=== PATIENT | female | born 2000 | race Two or more races ===

== ENCOUNTER 2024-10-05 18:50 | Emergency (ER) | payer OTHER ==
[~2024-10-05] VITALS: Ht 157.5 cm; Wt 112.3 kg
--- NOTE | 2024-10-05 19:18 | ED.PDOC ---
GI ASSESSMENT HPI Comments 23 year old female came to ER due to abdominal pain. Patient has history of WPW, states she has been having right lower quadrant abdominal pain since yesterday, sharp, intermittent 3x/ hour, radiating to her chest and associated with nausea, dizziness and diarrhea. Patient was seen yesterday, diagnosed with UTI and currently taking nitrofurantoin Chief Complaint: Abdominal Pain Time Seen by MD: 19:17 Primary Care Provider: NONE Reviewed Notes: Nurses Notes Information Source: Patient Mode of Arrival: Ambulatory Timing: Days Duration: Intermittent Prehospital treatment: None Quality: Sharp Vomitus: None Stool: Loose Severity: Moderate Recent: None Recent Hx of: None Pain Location: RLQ Modifying Factors: Nothing Associated sign and symptoms: Nausea, Diarrhea, Abdominal Pain Past Medical History PAST MEDICAL HISTORY: Asthma Past Medical History (Other): Woff parkinson white disease Surgical History: Tonsillectomy Surgical History (Other): cardiac ablation 2018 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 Family History Family History: Reviewed,noncontributory to illness Social History Smoker: Non-Smoker Alcohol: Denies ETOH Use Drugs: Denies Drug Use Lives In: Home Constitutional: denies: chills, diaphoresis, fatigue, fever, malaise, sweats, weakness, others EENTM: denies: blurred vision, double vision, ear bleeding, ear discharge, ear drainage, ear pain, ear ringing, eye pain, eye redness, hearing loss, mouth pain, mouth swelling, nasal discharge, nose bleeding, nose congestion, nose pain, photophobia, tearing, throat pain, throat swelling, voice changes, others Respiratory: denies: cough, hemoptysis, orthopnea, SOB at rest, shortness of breath, SOB with excertion, stridor, wheezing, others Cardiovascular: reports: chest pain; denies: dizzy spells, diaphoresis, Dyspnea on exertion, edema, irregular heart beat, left arm pain, lightheadedness, palpitations, PND, syncope, others Gastrointestinal: reports: abdominal pain, diarrhea, nausea; denies: abdomen distended, blood streaked bowels, constipated, dysphagia, difficulty swallowing, hematemesis, melena, poor appetite, poor fluid intake, rectal bleeding, rectal pain, vomiting, others Genitourinary: denies: abnormal vagina bleeding, burning, dyspareunia, dysuria, flank pain, frequency, hematuria, incontinence, pain, , vagina discharge, urgency, others Neurological: denies: dizziness, fainting, headache, left sided numbness, left sided weakness, numbness, paresthesia, pre-existing deficit, right sided numbness, right sided weakness, seizure, speech problems, tingling, tremors, weakness, others Musculoskeletal: denies: back pain, gout, joint pain, joint swelling, muscle pain, muscle stiffness, neck pain, others Integumetry: denies: bruises, change in color, change in hair/nails, dryness, laceration, lesions, lumps, rash, wounds, others Allergic/Immunocompromised: denies: Difficulty Healing, Frequent Infections, Hives, Itching, others Hematologic/Lymphatic: denies: anemia, blood clots, easy bleeding, easy bruising, swollen glands, others Endocrine: denies: excessive hunger, excessive sweating, excessive thirst, excessive urination, flushing, intolerance to cold, intolerance to heat, unexpl ained weight gain, unexplained weight loss, others Psychiatric: denies: anxiety, bipolar disorder, depression, hopeless, panic disorder, schizophrenia, sleepless, suicidal, others Physical Exam General Appearance: Moderate Distress, Obese HEENT: Normal ENT Inspection, Pharynx Normal, TMs Normal Neck: Full Range of Motion, Non-Tender, Normal, Normal Inspection Respiratory: Chest Non-Tender, Lungs Clear, No Accessory Muscle Use, No Respiratory Distress, Normal Breath Sounds Cardiovascular: No Edema, No JVD, No Murmur, No Gallop, Normal Peripheral Pulses, Regular Rate/Rhythm Breast Exam: Deferred Gastrointestinal: No Organomegaly, No Pulsatile Mass, Normal Bowel Sounds, Soft, Tenderness (rug) Genitalia: Deferred Pelvic: Deferred Rectal: Deferred Extremities: No calf tenderness, Normal capillary refill, Normal inspection, Normal range of motion, Non-tender, No pedal edema Musculoskeletal : Apperance: Normal Neurologic: Alert, oyster sorter II-XII nml as Tested, No Motor Deficits, Normal Affect, Normal Mood, No Sensory Deficits Cerebellar Function: Normal Reflexes: Normal Skin: Dry, Normal Color, Warm Lymphatic: No Adenopathy EKG EKG : Pulse Rate (adult): 94 Cardiac Rhythm: NSR Was a procedure done? Was a procedure done?: No GI differential Dx Differential Diagnosis: Appendicitis, Cholecystitis, Constipation, Diverticular disease, Gastritis/PUD, Gastroenteritis, Ovarian cyst/torsion, Pancreatitis, UTI, Urolithiasis X-Ray, Labs, Meds, VS Vital Signs Date Time Temp Pulse Resp B/P (MAP) Pulse Ox O2 Delivery O2 Flow Rate FiO2 10/05/24 19:19 94 10/05/24 19:06 94 10/05/24 19:00 96.9 109 18 134/83 (100) 96 Lab Test 10/05/24 20:05 10/05/24 19:20 Range/Units White Blood Count 5.0 4.4-10.8 10^3/uL Red Blood Count 5.56 H 4.0-5.20 10^6/uL Hemoglobin 13.0 12.2-16.2 g/dL Hematocrit 40.5 36.0-46.0 % Mean Corpuscular Volume 72.9 L 80.0-100.0 fL Mean Corpuscular Hemoglobin 23.4 L 28.0-32.0 pg Mean Corpuscular Hemoglobin Concent 32.1 32.0-36.0 g/dL Red Cell Distribution Width 15.3 H 11.8-14.3 % Platelet Count 311 140-450 10^3/uL Mean Platelet Volume 8.7 6.9-10.8 fL Neutrophils (%) (Auto) 37.9 37.0-80.0 % Lymphocytes (%) (Auto) 50.6 H 10.0-50.0 % Monocytes (%) (Auto) 7.5 0.0-12.0 % Eosinophils (%) (Auto) 2.8 0.0-7.0 % Basophils (%) (Auto) 1.2 0.0-2.0 % Neutrophils # (Auto) 1.9 1.6-8.6 10 ^3/uL Lymphocytes # (Auto) 2.5 0.4-5.4 10 ^3/uL Monocytes # (Auto) 0.4 0-1.3 10 ^3/uL Eosinophils # (Auto) 0.1 0-0.8 10 ^3/uL Basophils # (Auto) 0.1 0-0.2 10 ^3/uL Nucleated Red Blood Cells 0.3 % Sodium Level 139 136-145 mmol/L Potassium Level 3.6 3.5-5.1 mmol/L Chloride Level 107 98-107 mmol/L Carbon Dioxide Level 24 20-31 mmol/L Anion Gap 8 5-15 Blood Urea Nitrogen 9 9-23 mg/dL Creatinine 0.89 0.550-1.02 mg/dL Glomerular Filtration Rate Calc 94 >90 mL/min BUN/Creatinine Ratio 10.1 10.0-20.0 Serum Glucose 94 74-106 mg/dL Calcium Level 9.9 8.7-10.4 mg/dL Total Bilirubin 0.2 0.2-1.0 mg/dL Aspartate Amino Transferase (AST) 18 13-40 U/L Alanine Aminotransferase (ALT) 25 7-40 U/L Alkaline Phosphatase 77 46-116 U/L Total Protein 7.8 5.7-8.2 g/dL Albumin 4.8 3.2-4.8 g/dL Lipase 48 12-53 U/L Beta HCG, Quantitative 0.6 L 1.5-4.2 mIU/mL Urine Color Yellow Yellow Urine Clarity Clear Clear Urine pH 6.0 5.0-9.0 Urine Specific [place] 1.029 1.001-1.035 Urine Protein Trace H Negative Urine Ketones Trace Negative Urine Blood 2+ H Negative /uL Urine Nitrite Negative Negative Urine Bilirubin Negative Negative Urine Urobilinogen Normal Negative mg/dL Urine Leukocyte Esterase Negative Negative /uL Urine RBC 7 0 - 4 /hpf Urine Microscopic WBC 5 0-5 /HPF Urine Squamous Epithelial Cells Few <5 /hpf Urine Bacteria None seen None Seen /hpf Urine Mucus Few None Seen Urine Glucose Normal Normal mg/dL Urine Opiates Screen Neg NEGATIVE Urine Fentanyl Screen Neg NEGATIVE Urine Barbiturates Screen Neg NEGATIVE Urine Phencyclidine Screen Neg NEGATIVE Urine Amphetamines Screen Neg NEGATIVE Urine Benzodiazepines Screen Neg NEGATIVE Urine Cocaine Screen Neg NEGATIVE Urine Cannabinoids Screen Neg NEGATIVE CT SCAN ABDOMEN AND PELVIS WITHOUT CONTRAST CLINICAL HISTORY: abd pain TECHNIQUE: Helical axial images are obtained from the lung bases through the pelvis without oral contrast. No intravenous contrast was administered. Coronal and sagittal reformatted images were generated from thin section reconstructions. One or more of the following radiation dose reduction techniques were used for this examination: automated exposure control, adjustment of the mA and/or kV according to patient size, use of iterative reconstruction technique. CTDI: 26.59 mGy DLP: 1515.56 mGy-cm COMPARISON: None FINDINGS: LOWER THORAX: Imaged lung bases are grossly clear. ABDOMEN AND PELVIS: Evaluation of visceral and vascular structures is limited due to lack of contrast administration. Decreased hepatic parenchymal attenuation.. Additional focal fatty infiltration noted near the falciform ligament. No other discrete hepatic lesions as visualized. The spleen, pancreas and adrenals appear grossly unremarkable. Cholelithiasis. No gallbladder distention. No hydroureteronephrosis or sizable, obstructing urinary tract calculi iden tified. No evidence of abdominal aortic aneurysm. No evidence of bowel obstruction. Normal caliber appendix. No free intraperito jung air or fluid identified. Scattered sigmoid diverticulosis without definite CT evidence of diverticulitis. No sizable bladder calculus. No destructive osseous lesions identified. IMPRESSION: No bowel obstruction, free intraperitoneal air/ fluid or sizable inflammatory collections identified on this noncontrast examination. Decreased hepatic parenchymal attenuation which is most commonly secondary to fatty infiltration. Cholelithiasis without CT evidence of cholecystitis at this time. Ultrasound may be obtained to further evaluate. Sigmoid diverticulosis without definite CT evidence of diverticulitis. CBC and CMP were normal. UA and urine drug screen are normal. The patient was discharged with cholelithiasis and diverticulosis. Time of 1ST Reevaluation: 19:13 Reevaluation 1ST: Unchanged Patient Education/Counseling: Diagnosis, Treatment Family Education/Counseling: No Family Present Departure 1 Departure Time of Disposition: 21:23 Impression: Primary Impression: Cholelithiasis Qualified Codes: K80.20 - Calculus of gallbladder without cholecystitis without obstruction Additional Impression: Diverticulosis Disposition: 01 HOME / SELF CARE / HOMELESS Condition: Stable Additional Instructions: Reassessed patient, vital signs stable. Denies any new symptoms. Patient is able to tolerate PO and ambulate/be mobile at their baseline without concern. Risks and benefits of all medications given or prescribed, if any, discussed. All lab work, imaging and diagnostic studies were reviewed by me. The patient was counseled extensively on my clinical impression, diagnosis, expected course of the disease, and plan, including their follow-up care. Will discharge patient. Patient instructed to follow up with Primary Care Physician within 24-48 hours. Strict return precautions given for further exacerbation of symptoms or for new symptoms. The patient was given the opportunity to ask questions and all questions were answered by myself and the nursing/tech staff. Patient is in agr eement with the care plan. The patient verbally expressed understanding of the discharge instructions, including the reasons to return to the Emergency Department. e-Prescriptions Hydrocodone-Acetaminophen (Hydrocodone Bitartrate/AC 10-325 mg) 1 Tab Tab 1 TAB PO QIDPRN, #20 TAB Prov: UMANG DIAL MD 10/05/24 Dicyclomine Hcl (BENTYL CAPSULE) 10 Mg Cp 1 CAP PO TID, #90 CAP 11 Refills Prov: UMANG DIAL MD 10/05/24 Discharged With: Relative (Mother) Critical Care Note Critical Care Time?: No Stability Stability form required: No Heart Score Heart Score: Heart Score Response (Comments) Value History N/A 0 EKG N/A 0 Age N/A 0 Risk Factors N/A 0 Troponin N/A 0 Total 0 I personally scribed for UMANG DIAL MD ([email or web address]) on 10/05/24 at 19:18. Electronically submitted by Darryl Segovia ([email or web address]). I personally scribed for UMANG DIAL MD ([email or web address]) on 10/05/24 at 19:19. Electronically submitted by Darryl Segovia ([email or web address]). I personally scribed for UMANG DIAL MD ([email or web address]) on 10/05/24 at 20:57. Electronically submitted by Darryl Segovia ([email or web address]). UMANG DIAL MD Oct 05, 2024 19:18
[2024-10-05 19:23] LABS: Urine Bacteria None Seen /hpf (None Seen)
[2024-10-05 19:30] LABS: Urine Blood 2+ /uL (Negative); Urine Clarity Clear (Clear); Urine Color Yellow (Yellow); Urine Mucus FEW (None Seen); Urine Protein, UAD TRACE (Negative); Urine Specific Gravity 1.029 (1.001-1.035); Urine Squamous Epithelial Cell FEW /hpf (<5); Urine Urobilinogen Normal (Negative); Urine WBC 5 /HPF (0-5)
[2024-10-05 20:00] LABS: Amphetamine Screen, Urine Neg (NEGATIVE); Barbiturate Scree,Urine Neg (NEGATIVE); Benzodiazephine Screen, Urine Neg (NEGATIVE); Cannabinoid Screen, Urine Neg (NEGATIVE); Cocaine Screen, Urine Neg (NEGATIVE); Opiate Scree,Urine Neg (NEGATIVE); Phencyclidine Screen, Urine Neg (NEGATIVE)
--- NOTE | 2024-10-05 20:52 | DVH ---
CT SCAN ABDOMEN AND PELVIS WITHOUT CONTRAST CLINICAL HISTORY: abd pain TECHNIQUE: Helical axial images are obtained from the lung bases through the pelvis without oral cont rast. No intravenous contrast was administered. Coronal and sagittal reformatted images were generate d from thin section reconstructions. One or more of the following radiation dose reduction techniques were used for this examination: automated exposure control, adjustment of the mA and/or kV according to patient size, use of iterative reconstruction technique. CTDI: 26.59 mGy DLP: 1515.56 mGy-cm COMPARISON: None FINDINGS: LOWER THORAX: Imaged lung bases are grossly clear. ABDOMEN AND PELVIS: Evaluation of visceral and vascular structures is limited due to lack of contrast administration. Decreased hepatic parenchymal attenuation.. Additional focal fatty infiltration noted near the falcif orm ligament. No other discrete hepatic lesions as visualized. The spleen, pancreas and adrenals appear grossly unremarkable. Cholelithiasis. No gallbladder distention. No hydroureteronephrosis or sizable, obstructing urinary tract calculi identified. No evidence of abdominal aortic aneurysm. No evidence of bowel obstruction. Normal caliber appendix. No free intraperitoneal air or fluid ident ified. Scattered sigmoid diverticulosis without definite CT evidence of diverticulitis. No sizable bladder calculus. No destructive osseous lesions identified. IMPRESSION: No bowel obstruction, free intraperitoneal air/ fluid or sizable inflammatory collections identified on this noncontrast examination. Decreased hepatic parenchymal attenuation which is most commonly secondary to fatty infiltration. Cholelithiasis without CT evidence of cholecystitis at this time. Ultrasound may be obtained to [facility] er evaluate. Sigmoid diverticulosis without definite CT evidence of diverticulitis.
[2024-10-05 20:56] LABS: Eosinophils # (auto) 0.1 10 ^3/uL (0-0.8); Lymphocytes # (auto) 2.5 10 ^3/uL (0.4-5.4); Monocytes # (auto) 0.4 10 ^3/uL (0-1.3); Neutrophils # (auto) 1.9 10 ^3/uL (1.6-8.6); Nucleated Red Blood Cells % 0.3 %
[2024-10-05 20:58] LABS: Basophils # (auto) 0.1 10 ^3/uL (0-0.2); Basophils % (auto) 1.2 % (0.0-2.0); Eosinophils % (auto) 2.8 % (0.0-7.0); Hematocrit 40.5 % (36.0-46.0); Lymphocytes % (auto) 50.6 % (10.0-50.0); Mean Corpuscular Hemoglobin 23.4 pg (28.0-32.0); Mean Corpuscular Hgb Conc. 32.1 g/dL (32.0-36.0); Mean Corpuscular Volume 72.9 fL (80.0-100.0); Monocytes % (auto) 7.5 % (0.0-12.0); Neutrophils % (auto) 37.9 % (37.0-80.0); Platelet Count (auto) 311 10^3/uL (140-450); Red Blood Cells 5.56 10^6/uL (4.0-5.20); Red Cell Distribution Width 15.3 % (11.8-14.3)
[2024-10-05 21:03] LABS: Alanine Aminotransferase 25 U/L (7-40); Albumin 4.8 g/dL (3.2-4.8); Alkaline Phosphatase 77 U/L (46-116); Anion Gap 8 (5-15); Aspartate Aminotransferase 18 U/L (13-40); BUN/Creatinine Ratio 10.1 (10.0-20.0); Blood Urea Nitrogen 9 mg/dL (9-23); Calcium 9.9 mg/dL (8.7-10.4); Carbon Dioxide 24 mmol/L (20-31); Glucose 94 mg/dL (74-106); Lipase 48 U/L (12-53); Potassium 3.6 mmol/L (3.5-5.1); Sodium 139 mmol/L (136-145)
[2024-10-05 21:04] LABS: Total Protein 7.8 g/dL (5.7-8.2)
[2024-10-05 21:05] LABS: Bilirubin, Total 0.2 mg/dL (0.2-1.0); Chloride 107 mmol/L (98-107)
[2024-10-05] MEDS ORDERED: HYDR-4798 PO (21:25)
[2024-10-05] MEDS ORDERED: DICY10CA PO (21:25)
[2024-10-05 22:00] VITALS: BP 128/78; PULSE 95; RESP 18; TEMP 97; O2SAT 97
[2024-10-05] MEDS: HYDROcodone-ACET 10/325MG TAB PO ONE (22:21)
--- NOTE | 2024-10-06 08:17 | ECG ---
[facility] Test Date: 2024-10-05 Test Time: 19:06:11 Pat Name: CRISTIANO SHAH Department: ER Room: Gender: F Neck Pinner: DR SALAS: 2000 Requested By: UMANG DIAL Order Number: [id number] Reading MD: Ranjan Weston Measurements Intervals [place] Rate: 94 P: 67 ME: 123 QRS: 14 QRSD: 103 T: 21 QT: 350 QTc: 438 Interpretive Statements Sinus rhythm Low voltage, precordial leads Electronically Signed On 10-06-2024 8:29:29 PST by Ranjan Weston Please click the below link to view image of tracing.
== END 2024-10-05 22:31 | disposition home or self-care (01) ==
LOC: EEVIPCON 18:50 → ER 18:50
DX: K80.20 Calculus of gallbladder without cholecystitis without obstruction (principal); K57.30 Diverticulosis of large intestine without perforation or abscess without bleeding; J45.909 Unspecified asthma, uncomplicated; Z90.89 Acquired absence of other organs; Z98.890 Other specified postprocedural states; Z79.899 Other long term (current) drug therapy
CPT/HCPCS: 36415; 74176; 80053; 80307; 81001; 83690; 84702; 85025; 93005

== ENCOUNTER → 2024-10-07 | Outpatient (CLI) | payer BC ==
[~2024-10-07] MED LIST: DICY10CA PO; HYDR-4798 PO
[2024-10-07 09:31] LABS: Urine Bacteria None Seen /hpf (None Seen)
[2024-10-07 09:38] LABS: Basophils # (auto) 0 10 ^3/uL (0-0.2); Basophils % (auto) 1.2 % (0.0-2.0); Eosinophils # (auto) 0.1 10 ^3/uL (0-0.8); Eosinophils % (auto) 2.4 % (0.0-7.0); Hematocrit 43.2 % (36.0-46.0); Hemoglobin 13.6 g/dL (12.2-16.2); Lymphocytes # (auto) 1.2 10 ^3/uL (0.4-5.4); Lymphocytes % (auto) 38.4 % (10.0-50.0); Mean Corpuscular Hemoglobin 23.1 pg (28.0-32.0); Mean Corpuscular Hgb Conc. 31.5 g/dL (32.0-36.0); Mean Corpuscular Volume 73.4 fL (80.0-100.0); Monocytes # (auto) 0.3 10 ^3/uL (0-1.3); Monocytes % (auto) 8.9 % (0.0-12.0); Neutrophils # (auto) 1.5 10 ^3/uL (1.6-8.6); Neutrophils % (auto) 49.1 % (37.0-80.0); Nucleated Red Blood Cells % 0.1 %; Platelet Count (auto) 306 10^3/uL (140-450); Red Blood Cells 5.88 10^6/uL (4.0-5.20); Red Cell Distribution Width 15.7 % (11.8-14.3); White Blood Cell 3.1 10^3/uL (4.4-10.8)
[2024-10-07 09:40] LABS: Urine Blood TRACE /uL (Negative); Urine Clarity Clear (Clear); Urine Color Yellow (Yellow); Urine Mucus FEW (None Seen); Urine Protein, UAD 1+ (Negative); Urine Specific Gravity 1.033 (1.001-1.035); Urine Squamous Epithelial Cell FEW /hpf (<5); Urine Urobilinogen 2 mg/dL (Negative); Urine WBC 6 /HPF (0-5)
[2024-10-07 10:32] LABS: Alkaline Phosphatase 71 U/L (46-116); Anion Gap 6 (5-15); BUN/Creatinine Ratio 11.5 (10.0-20.0); Blood Urea Nitrogen 10 mg/dL (9-23); Calcium 9.9 mg/dL (8.7-10.4); Carbon Dioxide 28 mmol/L (20-31); Chloride 104 mmol/L (98-107); Glucose 94 mg/dL (74-106); Potassium 3.8 mmol/L (3.5-5.1); Sodium 138 mmol/L (136-145)
[2024-10-07 10:33] LABS: Bilirubin, Total 0.5 mg/dL (0.2-1.0)
[2024-10-07 10:34] LABS: Total Protein 7.8 g/dL (5.7-8.2)
[2024-10-07 10:36] LABS: Alanine Aminotransferase 101 U/L (7-40); Albumin 4.8 g/dL (3.2-4.8); Aspartate Aminotransferase 105 U/L (13-40)
[2024-10-07 15:19] LABS: LDL Cholesterol 59 mg/dL (< 100); Triglycerides 82 mg/dL (< 150)
[2024-10-07 15:20] LABS: Cholesterol 97 mg/dL (< 200)
[2024-10-07 15:34] LABS: HDL Cholesterol 30 mg/dL (40-59)
== END | disposition home or self-care (01) ==
LOC: LAB 09:03
PROVIDERS: ATTEND Internal Medicine
DX: Z00.01 Encounter for general adult medical examination with abnormal findings (principal); Z13.1 Encounter for screening for diabetes mellitus; K76.0 Fatty (change of) liver, not elsewhere classified; K57.90 Diverticulosis of intestine, part unspecified, without perforation or abscess without bleeding
CPT/HCPCS: 36415; 80053; 80061; 81001; 83036; 84439; 84443; 85025

== ENCOUNTER → 2024-11-06 | Outpatient (CLI) | payer BC ==
[2024-11-06 12:15] LABS: Basophils # (auto) 0 10 ^3/uL (0-0.2); Eosinophils # (auto) 0.1 10 ^3/uL (0-0.8); Lymphocytes # (auto) 1.9 10 ^3/uL (0.4-5.4)
[2024-11-06 12:18] LABS: Eosinophils % (auto) 2.6 % (0.0-7.0); Hematocrit 38.1 % (36.0-46.0); Hemoglobin 12.6 g/dL (12.2-16.2); Lymphocytes % (auto) 40.2 % (10.0-50.0); Mean Corpuscular Hemoglobin 24.4 pg (28.0-32.0); Mean Corpuscular Hgb Conc. 33.2 g/dL (32.0-36.0); Mean Corpuscular Volume 73.5 fL (80.0-100.0); Monocytes # (auto) 0.3 10 ^3/uL (0-1.3); Monocytes % (auto) 7.2 % (0.0-12.0); Neutrophils # (auto) 2.3 10 ^3/uL (1.6-8.6); Platelet Count (auto) 298 10^3/uL (140-450); Red Blood Cells 5.18 10^6/uL (4.0-5.20); Red Cell Distribution Width 16.2 % (11.8-14.3); White Blood Cell 4.7 10^3/uL (4.4-10.8)
[2024-11-06 12:54] LABS: Alkaline Phosphatase 73 U/L (46-116); Anion Gap 7 (5-15); Aspartate Aminotransferase 22 U/L (13-40); BUN/Creatinine Ratio 12.2 (10.0-20.0); Blood Urea Nitrogen 10 mg/dL (9-23); Calcium 9.9 mg/dL (8.7-10.4); Carbon Dioxide 26 mmol/L (20-31); Chloride 107 mmol/L (98-107); Glucose 86 mg/dL (74-106); Potassium 3.9 mmol/L (3.5-5.1); Sodium 140 mmol/L (136-145); Total Protein 8.1 g/dL (5.7-8.2)
[2024-11-06 12:55] LABS: Bilirubin, Total 0.4 mg/dL (0.2-1.0)
[2024-11-06 12:56] LABS: Alanine Aminotransferase 41 U/L (7-40); Albumin 4.8 g/dL (3.2-4.8)
[2024-11-06 12:57] LABS: Free T3 3.42 pg/mL (2.3-4.2); Free T4 (Free Thyroxine) 1.29 ng/dL (0.89-1.76)
[2024-11-06 12:58] LABS: Folate (Folic Acid) 10.46 ng/mL (>5.38); Follicle Stimulating Hormone 6.49 IU/L (SEE BELOW)
[2024-11-06 12:59] LABS: Leuteinizing Hormone 12.5 IU/L; Prolactin 3.15 ng/mL (2.8-29.2)
[2024-11-06 13:30] LABS: Hepatitis B Core Total AB Negative (Negative)
[2024-11-06 14:16] LABS: Hepatitis A Total Antibody Positive (Negative)
[2024-11-06 14:17] LABS: Hepatitis B Surface Antibody Positive (Negative); Hepatitis B Surface Antigen Negative (Negative); Hepatitis C Antibody Negative (Negative)
[2024-11-07 08:07] LABS: Estradiol 35.2 pg/mL (.)
[2024-11-08 06:07] LABS: Chlamydia Trachomatis, NAA Negative (Negative); Neisseria gonorrhoeae, NAA Negative (Negative)
== END | disposition home or self-care (01) ==
LOC: LAB 11:27
DX: Z01.419 Encounter for gynecological examination (general) (routine) without abnormal findings (principal); Z11.2 Encounter for screening for other bacterial diseases; E28.2 Polycystic ovarian syndrome; R79.89 Other specified abnormal findings of blood chemistry
CPT/HCPCS: 36415; 80053; 82607; 82626; 82670; 82746; 83001; 83002; 83036; 84146; 84403; 84439; 84443; 84481; 85025; 86703; 86704; 86706; 86708; 86780; 86803; 87340; 87902

== ENCOUNTER 2024-11-30 10:29 | Emergency (ER) | payer BC ==
[~2024-11-30] VITALS: Ht 157.5 cm; Wt 108.1 kg
[2024-11-30 10:36] VITALS: TEMP 99
--- NOTE | 2024-11-30 10:42 | ED.PDOC ---
GI ASSESSMENT HPI Comments 23 y/o F presents with c/o abdominal pain and nausea for the past 3x days, with associated strain when passing bowel movements, today. Patient also complains of menorrhagia that has been ongoing since August 2024. She states on consulting with her FUNNEL SETTER and having X-ray and ultrasound imaging performed no were overall unremarkable. Patient was just started on the Depo-Provera shot and has a follow up appointment with her OBGYN tomorrow. Patient denies any vomiting, diarrhea, constipation, fever, chills, or other associated symptoms at this time. 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 Chief Complaint: Abdominal Pain Time Seen by MD: 10:40 Primary Care Provider: SAM WARD Reviewed Notes: Nurses Notes, Medications, Allergies Allergies: Coded Allergies: NO KNOWN ALLERGIES (Unverified , 11/30/24) Home Meds Active Scripts Cephalexin Monohydrate (Cephalexin) 500 Mg Cap, 500 MG PO Q6HR for 5 Days, #20 MG Prov:ALEXI GUERRERO MD 11/30/24 Cephalexin Monohydrate (Cephalexin) 500 Mg Cap, 500 MG PO Q6HR for 5 Days, #20 MG Prov:ALEXI GUERRERO MD 11/30/24 Hydrocodone-Acetaminophen (Hydrocodone Bitartrate/AC 10-325 mg) 1 Tab Tab, 1 TAB PO QIDPRN, #20 TAB Prov:UMANG DIAL MD 10/05/24 Dicyclomine Hcl (BENTYL CAPSULE) 10 Mg Cp, 1 CAP PO TID, #90 CAP 11 Refills Prov:UMANG DIAL MD 10/05/24 Information Source: Patient Mode of Arrival: Ambulatory Past Medical History PAST MEDICAL HISTORY: Asthma Past Medical History (Other): diverticulosis, menorrhagia, rigo parkinson white syndrome Surgical History: Tonsillectomy Surgical History (Other): hear ablation in 2019 OVERWEAVER History: Denies all OVERWEAVER Hx Family History Family History: Reviewed,noncontributory to illness Social History Smoker: Non-Smoker Alcohol: Denies ETOH Use Drugs: Denies Drug Use Lives In: Home All Other Systems: Reviewed and Negative (Comprehensive review of systems are negative unless otherwise stated in HPI) Physical Exam General Appearance: No Apparent Distress, Normal HEENT: Normal ENT Inspection, Pharynx Normal, TMs Normal Neck: Full Range of Motion, Non-Tender, Normal, Normal Inspection Respiratory: Chest Non-Tender, Lungs Clear, No Accessory Muscle Use, No Respiratory Distress, Normal Breath Sounds Cardiovascular: No Edema, No JVD, No Murmur, No Gallop, Normal Peripheral Pulses, Regular Rate/Rhythm Breast Exam: Deferred Gastrointestinal: No Organomegaly, Non Tender, No Pulsatile Mass, Normal Bowel Sounds, Soft, Other (No CVAT bilaterally) Genitalia: Deferred Pelvic: Deferred Rectal: Deferred Extremities: No calf tenderness, Normal capillary refill, Normal inspection, Normal range of motion, Non-tender, No pedal edema Musculoskeletal : Apperance: Normal Neurologic: Alert, bagman/woman II-XII nml as Tested, No Motor Deficits, Normal Affect, Normal Mood, No Sensory Deficits Cerebellar Function: NOT DONE Reflexes: NOT DONE Skin: Dry, Normal Color, Warm Lymphatic: No Adenopathy EKG EKG : Pulse Rate (adult): 79 [place]: Normal Cardiac Rhythm: NSR Block: None Hypertrophy: None ST: Normal Was a procedure done? Was a procedure done?: No GI differential Dx Differential Diagnosis: Appendicitis, Angina/AL, Ectopic , Gastritis/PUD, Gastroenteritis, UTI, Electrolyte Imbalance, Food Poisoning, , Parasitic, Viral, Other (menorrhea) X-Ray, Labs, Meds, VS Vital Signs Date Time Temp Pulse Resp B/P (MAP) Pulse Ox O2 Delivery O2 Flow Rate FiO2 11/30/24 12:08 80 16 100 Room Air* 0 21 11/30/24 12:08 80 16 133/79 (97) 100 11/30/24 10:49 79 11/30/24 10:45 79 11/30/24 10:36 99.0 91 16 112/63 (79) 96 99.0 Lab Test 11/30/24 11:00 11/30/24 10:50 Range/Units Urine Color Light-yellow Yellow Urine Clarity Clear Clear Urine pH 5.5 5.0-9.0 Urine Specific [place] 1.020 1.001-1.035 Urine Protein Negative Negative Urine Ketones Negative Negative Urine Blood Trace H Negative /uL Urine Nitrite Negative Negative Urine Bilirubin Negative Negative Urine Urobilinogen Normal Negative mg/dL Urine Leukocyte Esterase 2+ Negative /uL Urine RBC 11 0 - 4 /hpf Urine Microscopic WBC 8 H 0-5 /HPF Urine Squamous Epithelial Cells Few <5 /hpf Urine Bacteria None seen None Seen /hpf Urine Mucus Few None Seen Urine Glucose Normal Normal mg/dL Urine Test Negative Negative White Blood Count 5.0 4.4-10.8 10^3/uL Red Blood Count 4.72 4.0-5.20 10^6/uL Hemoglobin 11.1 L 12.2-16.2 g/dL Hematocrit 34.3 L 36.0-46.0 % Mean Corpuscular Volume 72.8 L 80.0-100.0 fL Mean Corpuscular Hemoglobin 23.5 L 28.0-32.0 pg Mean Corpuscular Hemoglobin Concent 32.3 32.0-36.0 g/dL Red Cell Distribution Width 14.9 H 11.8-14.3 % Platelet Count 387 140-450 10^3/uL Mean Platelet Volume 8.3 6.9-10.8 fL Neutrophils (%) (Auto) 44.1 37.0-80.0 % Lymphocytes (%) (Auto) 45.1 10.0-50.0 % Monocytes (%) (Auto) 7.1 0.0-12.0 % Eosinophils (%) (Auto) 2.6 0.0-7.0 % Basophils (%) (Auto) 1.1 0.0-2.0 % Neutrophils # (Auto) 2.2 1.6-8.6 10 ^3/uL Lymphocytes # (Auto) 2.3 0.4-5.4 10 ^3/uL Monocytes # (Auto) 0.4 0-1.3 10 ^3/uL Eosinophils # (Auto) 0.1 0-0.8 10 ^3/uL Basophils # (Auto) 0.1 0-0.2 10 ^3/uL Nucleated Red Blood Cells 0.0 % Sodium Level 141 136-145 mmol/L Potassium Level 3.8 3.5-5.1 mmol/L Chloride Level 109 H 98-107 mmol/L Carbon Dioxide Level 24 20-31 mmol/L Anion Gap 8 5-15 Blood Urea Nitrogen 10 9-23 mg/dL Creatinine 0.94 0.550-1.02 mg/dL Glomerular Filtration Rate Calc 88 >90 mL/min BUN/Creatinine Ratio 10.6 10.0-20.0 Serum Glucose 92 74-106 mg/dL Calcium Level 9.6 8.7-10.4 mg/dL Current Medications Medications (Trade) Dose Ordered Sig/Daniel Route Start Time Stop Time Status Last Admin Sodium Chloride 1,000 ml @ 1,000 mls/hr Q1H ONCE IV 11/30/24 11:45 11/30/24 12:44 DC 11/30/24 12:07 X-Ray, Labs, Meds, VS Comment 23-year-old female with a history of abnormal uterine bleeding currently being worked up by OBGYN here today with the above complaints. Vital signs stable, afebrile. Physical exam without any acute findings. Labs overall notable for mild anemia not requiring transfusion and a UA positive for UTI. Patient was started on oral Keflex and given return precautions for persistent or worsening of symptoms or development of nausea, vomiting, fevers, flank pain, or any other new or concerning symptoms. Doubt pyelonephritis. Patient has a follow up appointment with her OBGYN tomorrow and preferred not to do a pelvic exam or any sort of workup for her abnormal uterine bleeding as it was currently in progress with her OBGYN. No evidence of hemorrhagic shock. Not . Patient was discharged home with return precautions as above and instructions to follow up with the primary care provider within 2-3 days for re-evaluation. Images Reviewed?: Images reviewed and evaluated by me Time of 1ST Reevaluation: 11:10 Reevaluation 1ST: Unchanged Time of 2ND Reevaluation: 12:45 Patient Education/Counseling: Diagnosis, Treatment, Need For Follow Up Family Education/Counseling: No Family Present Additional Information evious medical encounters reviewed: N/A The following tests were ordered, and results were reviewed by me: N/A Additional Information was gathered from interviewing the following independent historians: N/A I reviewed and agreed with the following test results read by other providers: N/A I discussed treatment and results with medical personnel and: Patient Departure 1 Departure Time of Disposition: 13:39 Impression: Primary Impression: UTI (urinary tract infection) Additional Impressions: Abnormal uterine bleeding Anemia Disposition: 01 HOME / SELF CARE / HOMELESS Condition: Stable e-Prescriptions Cephalexin Monohydrate (Cephalexin) 500 Mg Cap 500 MG PO Q6HR for 5 Days, #20 MG Prov: ALEXI GUERRERO MD 11/30/24 Cephalexin Monohydrate (Cephalexin) 500 Mg Cap 500 MG PO Q6HR for 5 Days, #20 MG Prov: ALEXI GUERRERO MD 11/30/24 Critical Care Note Critical Care Time?: No Stability Stability form required: No Heart Score Heart Score: Heart Score Response (Comments) Value History N/A 0 EKG N/A 0 Age N/A 0 Risk Factors N/A 0 Troponin N/A 0 Total 0 I personally scribed for ALEXI GUERRERO MD ([email or web address]) on 11/30/24 at 10:42. Electronically submitted by Thomas Garcia ([email or web address]). I personally scribed for ALEXI GUERRERO MD ([email or web address]) on 11/30/24 at 10:49. Electronically submitted by Thomas Garcia ([email or web address]). I personally scribed for ALEXI GUERRERO MD ([email or web address]) on 11/30/24 at 10:51. El ectronically submitted by Thomas Garcia ([email or web address]). I personally scribed for ALEXI GUERRERO MD ([email or web address]) on 11/30/24 at 11:13. Electronically submitted by Thomas Garcia ([email or web address]). I personally scribed for ALEIX GUERRERO MD ([email or web address]) on 11/30/24 at 11:23. Electronically submitted by Thomas Garcia ([email or web address]). ALEXI GUERRERO MD Nov 30, 2024 10:42
--- NOTE | 2024-11-30 10:47 | ECG ---
[facility] Test Date: 2024-11-30 Test Time: 10:45:47 Pat Name: CRISTIANO SHAH Department: ER Room: Gender: F Java Architect: TANESHA : 2000 Requested By: ALEXI GUERRERO Order Number: [id number] Reading MD: Measurements Intervals [place] Rate: 79 P: 46 [place]: 117 QRS: -13 QRSD: 114 T: 15 QT: 384 QTc: 441 Interpretive Statements Sinus rhythm Borderline short [place] interval Incomplete left bundle branch block Low voltage, precordial leads Please click the below link to view image of tracing.
[2024-11-30 11:10] LABS: Urine Bacteria None Seen /hpf (None Seen)
[2024-11-30 11:18] LABS: Potassium 3.8 mmol/L (3.5-5.1); Sodium 141 mmol/L (136-145)
[2024-11-30 11:19] LABS: Anion Gap 8 (5-15); Calcium 9.6 mg/dL (8.7-10.4); Carbon Dioxide 24 mmol/L (20-31)
[2024-11-30 11:21] LABS: Eosinophils # (auto) 0.1 10 ^3/uL (0-0.8); Hematocrit 34.3 % (36.0-46.0); Hemoglobin 11.1 g/dL (12.2-16.2); Lymphocytes # (auto) 2.3 10 ^3/uL (0.4-5.4); Lymphocytes % (auto) 45.1 % (10.0-50.0); Monocytes # (auto) 0.4 10 ^3/uL (0-1.3)
[2024-11-30 11:24] LABS: BUN/Creatinine Ratio 10.6 (10.0-20.0); Blood Urea Nitrogen 10 mg/dL (9-23); Glucose 92 mg/dL (74-106)
[2024-11-30 11:26] LABS: Basophils # (auto) 0.1 10 ^3/uL (0-0.2); Basophils % (auto) 1.1 % (0.0-2.0); Eosinophils % (auto) 2.6 % (0.0-7.0); Mean Corpuscular Hemoglobin 23.5 pg (28.0-32.0); Mean Corpuscular Hgb Conc. 32.3 g/dL (32.0-36.0); Mean Corpuscular Volume 72.8 fL (80.0-100.0); Monocytes % (auto) 7.1 % (0.0-12.0); Neutrophils # (auto) 2.2 10 ^3/uL (1.6-8.6); Neutrophils % (auto) 44.1 % (37.0-80.0); Platelet Count (auto) 387 10^3/uL (140-450); Red Blood Cells 4.72 10^6/uL (4.0-5.20); Red Cell Distribution Width 14.9 % (11.8-14.3)
[2024-11-30 11:47] LABS: Urine Blood TRACE /uL (Negative); Urine Clarity Clear (Clear); Urine Color Light-Yellow (Yellow); Urine Mucus FEW (None Seen); Urine Protein, UAD Negative (Negative); Urine Squamous Epithelial Cell FEW /hpf (<5); Urine Urobilinogen Normal (Negative); Urine WBC 8 /HPF (0-5); Urine pH 5.5 (5.0-9.0)
[2024-11-30 11:50] LABS: Chloride 109 mmol/L (98-107)
[2024-11-30] MEDS: SODIUM CHLORIDE 0.9% 1,000 ML IV ONE (12:07)
[2024-11-30 12:08] VITALS: BP 133/79; PULSE 80; RESP 16; O2SAT 100
[2024-11-30] MEDS ORDERED: CEPH500C PO (12:42)
== END 2024-11-30 13:41 | disposition home or self-care (01) ==
LOC: ER 10:29
DX: N39.0 Urinary tract infection, site not specified (principal); N93.9 Abnormal uterine and vaginal bleeding, unspecified; D64.9 Anemia, unspecified; J45.909 Unspecified asthma, uncomplicated; Z90.89 Acquired absence of other organs; Z79.899 Other long term (current) drug therapy; Z98.890 Other specified postprocedural states
CPT/HCPCS: 36415; 80048; 81001; 81025; 85025; 86850; 86900; 86901; 93005; 99284; J7030

== ENCOUNTER 2024-12-15 06:14 | Inpatient (IN) | payer BC ==
[2024-12-12 14:13] LABS: Basophils # (auto) 0 10 ^3/uL (0-0.2); Basophils % (auto) 0.8 % (0.0-2.0); Eosinophils # (auto) 0.1 10 ^3/uL (0-0.8); Eosinophils % (auto) 2.2 % (0.0-7.0); Hematocrit 36.2 % (36.0-46.0); Hemoglobin 11.8 g/dL (12.2-16.2); Lymphocytes # (auto) 2.4 10 ^3/uL (0.4-5.4); Lymphocytes % (auto) 44.4 % (10.0-50.0); Mean Corpuscular Hemoglobin 23.3 pg (28.0-32.0); Mean Corpuscular Hgb Conc. 32.6 g/dL (32.0-36.0); Mean Corpuscular Volume 71.7 fL (80.0-100.0); Monocytes # (auto) 0.4 10 ^3/uL (0-1.3); Monocytes % (auto) 7.6 % (0.0-12.0); Neutrophils # (auto) 2.4 10 ^3/uL (1.6-8.6); Nucleated Red Blood Cells % 0.1 %; Platelet Count (auto) 393 10^3/uL (140-450); Red Blood Cells 5.04 10^6/uL (4.0-5.20); Red Cell Distribution Width 15.1 % (11.8-14.3); White Blood Cell 5.4 10^3/uL (4.4-10.8)
[2024-12-12 14:15] LABS: Urine Bacteria FEW /hpf (None Seen); Urine Blood 2+ /uL (Negative); Urine Clarity Clear (Clear); Urine Color Light-Yellow (Yellow); Urine Mucus FEW (None Seen); Urine Protein, UAD Negative (Negative); Urine Specific Gravity 1.013 (1.001-1.035); Urine Squamous Epithelial Cell FEW /hpf (<5); Urine Urobilinogen Normal (Negative); Urine WBC 15 /HPF (0-5); Urine pH 5.5 (5.0-9.0)
[2024-12-12 14:19] LABS: Potassium 3.6 mmol/L (3.5-5.1); Sodium 142 mmol/L (136-145)
[2024-12-12 14:20] LABS: Anion Gap 10 (5-15); Carbon Dioxide 22 mmol/L (20-31); Chloride 110 mmol/L (98-107)
[2024-12-12 14:21] LABS: Calcium 10.1 mg/dL (8.7-10.4)
[2024-12-12 14:25] LABS: Blood Urea Nitrogen 9 mg/dL (9-23)
[2024-12-12 14:27] LABS: Glucose 71 mg/dL (74-106)
[2024-12-12 14:40] LABS: INR 1.06 (0.9-1.15); Partial Thromboplastin Time 31.9 SEC (24.5-34.5); Prothrombin Time 11.2 sec (9.3-11.8)
[~2024-12-15] VITALS: Ht 157.5 cm; Wt 115.2 kg
[~2024-12-15 06:14] MED LIST changes: +CLOB0.055 EX; -DICY10CA PO; +FER325T PO; -HYDR-4798 PO; +IBUP100S11 GT
[2024-12-15] MEDS: SUCCINYLCHOLINE CHLORIDE 20 MG/ML 10ML VIAL IV ONE (06:58)
[2024-12-15] MEDS ORDERED: PROPOFOL 10 MG/ML 20 ML IV ONE (07:01)
[2024-12-15] MEDS ORDERED: fentaNYL CITRATE 100 MCG/2 ML VL ONE ×2 (07:03→07:04)
[2024-12-15] MEDS: ceFAZolin 2 GM/D5W50ml 50 ML IV ONE (07:21)
[2024-12-15] MEDS ORDERED: ROCURONIUM 10MG/ML 10ML VIAL IV ONE (07:29)
[2024-12-15] MEDS ORDERED: ONDANSETRON HCL 4 MG/2 ML VIAL ONE (07:30)
[2024-12-15] MEDS ORDERED: DexAMETHasone SOD PHOS 10MG/1ML VIAL INJ ONE (07:30)
[2024-12-15] MEDS ORDERED: HYDROmorphone HCL 2 MG/ML VL/or syr ONE (07:33)
[2024-12-15] MEDS: Lidocaine/Epinephrine 1%-1:100,000 30ML VL ONE (08:01)
[2024-12-15] MEDS: BUPIVACAINE HCL 50 ML ONE (08:01)
[2024-12-15] MEDS ORDERED: SUGAMMADEX 200mg/2ml Vial (100MG/ML) IV ONE (08:05)
[2024-12-15 08:25] VITALS: PULSE 73; RESP 3; O2SAT 23
[2024-12-15] MEDS: D5W/SOD CHL 0.45%/KCL 20MEQ 1,000 ML IV SCH (08:45)
--- NOTE | 2024-12-15 08:45 | DVHOP ---
DATE OF SURGERY: 12/15/2024 PREOPERATIVE DIAGNOSES: Cholelithiasis, cholecystitis. POSTOPERATIVE DIAGNOSES: Cholelithiasis, cholecystitis. SURGEON: Walter Bowman MD RESPIRATORY PRACTITIONER: Tim Pabon NP ANESTHESIA: General endotracheal. ANESTHESIOLOGIST: Dr. Grant. PROCEDURES: Laparoscopy, laparoscopic cholecystectomy. DESCRIPTION OF PROCEDURE: Under general endotracheal anesthesia with the patient's skin prepped and draped, a supraumbilical incision was made and a Veress needle inserted by the hanging drop technique to establish pneumoperitoneum to 15 mmHg pressure by insufflation with carbon dioxide. With the abdomen fully distended, the needle was removed and replaced with a 5 mm trocar port through which a 0-degree viewing laparoscope was inserted and under direct vision, 5 and 10 mm ports were inserted through the anterior axillary line at the level of the umbilicus and the subxiphoid midline skin. The patient's laparoscopy was hampered by the patient's morbid obesity; however, no obvious unexpected pathology was encountered on the serosal surfaces visualized. The gallbladder was recessed far below the right lobe of the liver. The hepatomegaly, obesity, and the far recessed gallbladder made the operation technically very difficult. The gallbladder was placed on tension. The cystic duct and artery were identified, circumferentially dissected, skeletonized, and traced into the hepaticocystic triangle, so as to minimize the potential for inadvertent injury to the common bile duct. The cystic duct and cystic artery were then divided between metallic clips close to the gallbladder and again attempting to avoid any injury to the common bile duct. Following division of the cystic duct and cystic artery, the gallbladder was resected from the liver bed by electrocautery and traction. The fully mobilized gallbladder was then placed into a specimen extraction bag and retrieved from the peritoneal cavity through the subxiphoid 10 mm port site. Subsequently, the right upper quadrant was profusely irrigated and inspected for hemostasis. Hemostasis was found to be complete from the cholecystectomy site as well as from the port sites. There was no evidence of any bleeding at the termination of the procedure. Subhepatic space was again irrigated, again aspirated, and inspected. Following assurance of complete hemostasis and following irrigation and aspiration of the irrigant, instrumentation was removed. Pneumoperitoneum was evacuated. Fascial defect closed using 0 Vicryl. Wounds approximated using Monocryl sutures, Dermabond glue and Steri-Strips. The patient remained stable throughout the procedure, left the operating room following an accurate needle and sponge count. The patient's mother was thoroughly informed. Father was informed by phone. Walter Bowman MD PF/CLAIRE TID: [id number] RECEIPT: [id number]
[2024-12-15] MEDS: ACETAMINOPHEN IV 100 ML IV ONE (08:56)
[2024-12-15] MEDS ORDERED: HYDROmorphone HCL 2 MG/ML VL/or syr IV PRN (09:00)
[2024-12-15] MEDS: ACETAMINOPHEN IV 1000 MG/100ML (10MG/ML) IV PRN (09:00)
[2024-12-15] MEDS: ONDANSETRON HCL 4 MG/2 ML VIAL IV ONE (09:00)
[2024-12-15] MEDS ORDERED: MEPERIDINE HCL (25 MG/ML) 1ML VIAL IV PRN (09:00)
--- NOTE | 2024-12-15 09:17 | DVH ---
CHEST RADIOGRAPH Indication: POST OP Technique: Single frontal view of the chest was obtained Comparison: None FINDINGS: Lines and Tubes: None Lungs: No focal consolidation. Pleura: No effusion. No pneumothorax. Cardiomediastinal contours: Unremarkable Bones: No acute osseous abnormality. IMPRESSION: No acute cardiopulmonary disease.
[2024-12-15] MEDS ORDERED: ONDANSETRON HCL 4 MG/2 ML VIAL IV PRN (11:15)
--- NOTE | 2024-12-15 11:18 | DVHHP2 ---
Admitting Diagnosis: Acute cholecystitis History of Present Illness Patient is a 23 years old woman with a history of iron deficiency, low Parkinson's White, tonsillectomy, adoptive presents to the hospital for la paroscopic cholecystectomy. Patient was found to have cholecystitis and patient had a lap cholecystectomy today. PACU patient was seen in patient is awake, alert, resting comfortably in bed. Vital signs stable. The patient's antibiotics Ancef and Flagyl. Patient has been diagnosed sleep apnea palpitation on CPAP q.h.s.. Pain control with Tylenol, NSAIDs and Dilaudid for breakthrough pain. Check VBG for hypercapnia. Patient will be admitted to telemetry unit for history of Lkwmm-Upfgmuknr-Uizcr status post ablation. No fever or chills, no chest pain, nausea vomiting constipation or diarrhea. Family history patient is a diabetic Medical history-none deficiency (silhouette Surgical history-status post ablation for Ktfrv-Pffntbajt-Dwyek and tonsillec trey Allergies denies significant allergies Social history denies drinking alcohol or drug use Allergies: Coded Allergies: NO KNOWN ALLERGIES (Unverified , 11/30/24) Home Meds Reported Medications Clobetasol Propionate (Clobetasol Propionate) 0.05 % Cre, 0.05 % EX DAILY, CRE 12/12/24 Ferrous Sulfate (FERROUS SULFATE) 325 Mg Tb, 325 MG PO DAILY, TAB 12/12/24 Ibuprofen (Motrin) 100 Mg/5 Ml Ud, 300 MG GT PRN, UNIT 12/12/24 Current Medications Current Medications Medications (Trade) Dose Ordered Sig/Daniel Route PRN Reason Start Time Stop Time Status Last Admin Acetaminophen (Ofirmev) 1,000 mg [id number] PRN IV PAIN SCALE 1-3 OR TEMP>100.4 12/15/24 09:00 12/15/24 09:29 DC 12/15/24 09:00 Hydromorphone HCl (Dilaudid Injection) 0.25 mg Q10M PRN IV MODERATE PAIN (4-6 PAIN SCALE) 12/15/24 09:00 12/15/24 09:31 DC Meperidine HCl (Demerol Injection) 25 mg Q10M PRN IV MODERATE PAIN (4-6 PAIN SCALE) 12/15/24 09:00 12/15/24 09:31 DC Potassium Chloride/Dextrose/ Sod Cl 1,000 ml @ 100 mls/hr Q10H IV 12/15/24 08:45 Cefazolin Sodium/ Dextrose 50 ml @ 50 mls/hr Q8HR IV 12/15/24 14:00 Metronidazole 100 ml @ 100 mls/hr Q8HR IV 12/15/24 14:00 Hydromorphone HCl (Dilaudid Injection) 1 mg Q3HPRN PRN IV SEVERE PAIN (7-10 PAIN SCALE) 12/15/24 08:45 Vital Signs Vital Signs Date Time Temp Pulse Resp B/P (MAP) Pulse Ox O2 Delivery O2 Flow Rate FiO2 12/15/24 06:18 97.4 79 20 111/61 (78) 98 97.4 Physical Exam Generally-24 years old woman, morbidly obese, lying in bed. No apparent distress HEENT-atraumatic, normocephalic Heart-regular rate and rhythm lungs decreased breath sounds bilaterally Abdomen soft, nontender, covered in abdominal band Musculoskeletal-no edema cyanosis Neuro-AO x3, no focal deficits Results Labs Test 12/12/24 12:36 Range/Units White Blood Count 5.4 4.4-10.8 10^3/uL Red Blood Count 5.04 4.0-5.20 10^6/uL Hemoglobin 11.8 L 12.2-16.2 g/dL Hematocrit 36.2 36.0-46.0 % Mean Corpuscular Volume 71.7 L 80.0-100.0 fL Mean Corpuscular Hemoglobin 23.3 L 28.0-32.0 pg Mean Corpuscular Hemoglobin Concent 32.6 32.0-36.0 g/dL Red Cell Distribution Width 15.1 H 11.8-14.3 % Platelet Count 393 140-450 10^3/uL Mean Platelet Volume 8.6 6.9-10.8 fL Neutrophils (%) (Auto) 45.0 37.0-80.0 % Lymphocytes (%) (Auto) 44.4 10.0-50.0 % Monocytes (%) (Auto) 7.6 0.0-12.0 % Eosinophils (%) (Auto) 2.2 0.0-7.0 % Basophils (%) (Auto) 0.8 0.0-2.0 % Neutrophils # (Auto) 2.4 1.6-8.6 10 ^3/uL Lymphocytes # (Auto) 2.4 0.4-5.4 10 ^3/uL Monocytes # (Auto) 0.4 0-1.3 10 ^3/uL Eosinophils # (Auto) 0.1 0-0.8 10 ^3/uL Basophils # (Auto) 0 0-0.2 10 ^3/uL Nucleated Red Blood Cells 0.1 % Prothrombin Time 11.2 9.3-11.8 sec Prothrombin Time INR 1.06 0.9-1.15 Activated Partial Thromboplast Time 31.9 24.5-34.5 SEC Urine Color Light-yellow Yellow Urine Clarity Clear Clear Urine pH 5.5 5.0-9.0 Urine Specific Peculiar 1.013 1.001-1.035 Urine Protein Negative Negative Urine Ketones Negative Negative Urine Blood 2+ H Negative /uL Urine Nitrite Negative Negative Urine Bilirubin Negative Negative Urine Urobilinogen Normal Negative mg/dL Urine Leukocyte Esterase 2+ Negative /uL Urine RBC 4 0 - 4 /hpf Urine Microscopic WBC 15 H 0-5 /HPF Urine Squamous Epithelial Cells Few <5 /hpf Urine Bacteria Few H None Seen /hpf Urine Mucus Few None Seen Urine Glucose Normal Normal mg/dL Sodium Level 142 136-145 mmol/L Potassium Level 3.6 3.5-5.1 mmol/L Chloride Level 110 H 98-107 mmol/L Carbon Dioxide Level 22 20-31 mmol/L Anion Gap 10 5-15 Blood Urea Nitrogen 9 9-23 mg/dL Creatinine 0.90 0.550-1.02 mg/dL Glomerular Filtration Rate Calc 93 >90 mL/min BUN/Creatinine Ratio 10.0 10.0-20.0 Serum Glucose 71 L 74-106 mg/dL Calcium Level 10.1 8.7-10.4 mg/dL Beta HCG, Quantitative 0.5 L 1.5-4.2 mIU/mL Primary Diagnosis Acute cholecystitis status post lap clarisse Respiratory distress likely due to history of sleep apnea Plan Episode of respiratory distress after extubation. Check VBG for hypercapnia CPAP q.h.s. for obstructive sleep apnea suspected On Ancef, Flagyl per surgery D5 fluids per surgery Pain control with Tylenol, Celebrex, Dilaudid for breakthrough pain Regular diet Resume home iron supplement Tele for history of Myuug-Ujvusdrtw-Ikxlp. Avoid beta-blockers the spine status post ablation. Patient did not follow up with the [facility]. Full code SCD for DVT prophylaxis No GI prophylaxis needed Plan discussed with: Patient Problems List: (1) Cholelithiasis Status: Acute Date of Service: Dec 15, 2024 Billing Provider: KRISAHN MANN MD Common Visit Codes: [id number] INP/OBS CARE (MOD) KRISHAN MANN MD Dec 15, 2024 11:18
[2024-12-15] MEDS: CELECOXIB 100 MG CAP PO ONE (12:00)
[2024-12-15 12:54] LABS: Base Excess -4.7 mmol/L (-2.0-3.0)
[2024-12-15] MEDS: SODIUM CHLOR 0.9% PF (SALINE LOCK) 10ML VIAL/SYR IV SCH (14:00)
[2024-12-15] MEDS: metroNIDAZOLE 500MG/100ML 100 ML IV SCH (14:00)
[2024-12-15] MEDS: ceFAZolin 2 GM/D5W50ml 50 ML IV SCH (14:00)
[2024-12-15] MEDS: HYDROmorphone HCL 2 MG/ML VL/or syr ONE (14:12)
[2024-12-15] MEDS: diphenhdrAMINE HCL 50 MG/1 ML VL IV ONE (14:41)
[2024-12-15] MEDS ORDERED: metroNIDAZOLE 500MG/100ML 100 ML IV ONE (15:44)
[2024-12-15 16:30] VITALS: BP 109/61; PULSE 60; RESP 16; TEMP 98.5; O2SAT 97
[2024-12-15] MEDS: HYDROMORPHONE HCL 1 MG/ML INJ IV PRN (16:48)
[2024-12-15 17:00] VITALS: BP 109/61; PULSE 60; RESP 16; TEMP 98.5; O2SAT 97
[2024-12-15 20:00] VITALS: PULSE 54; PULSE 55; RESP 16; O2SAT 94
[2024-12-15 20:46] VITALS: BP 134/69; PULSE 54; RESP 16; TEMP 98.3; O2SAT 94
[2024-12-15] MEDS ORDERED: CELECOXIB 100 MG CAP PO PRN (22:00)
[2024-12-16] VITALS (7 sets, daily range): BP systolic 98–123; BP diastolic 36–71; PULSE 55–92; RESP 14–20; TEMP 97.9–98.7; O2SAT 97–99
[2024-12-16 06:55] LABS: Albumin 4.3 g/dL (3.2-4.8); Alkaline Phosphatase 57 U/L (46-116); Anion Gap 9 (5-15); Calcium 9.3 mg/dL (8.7-10.4); Carbon Dioxide 22 mmol/L (20-31); Sodium 140 mmol/L (136-145)
[2024-12-16 06:56] LABS: Basophils # (auto) 0 10 ^3/uL (0-0.2); Bilirubin, Total 0.3 mg/dL (0.2-1.0); Eosinophils # (auto) 0 10 ^3/uL (0-0.8); Hemoglobin 10.7 g/dL (12.2-16.2); Monocytes # (auto) 0.5 10 ^3/uL (0-1.3); Monocytes % (auto) 5.9 % (0.0-12.0)
[2024-12-16 07:00] LABS: Basophils % (auto) 0.4 % (0.0-2.0); Hematocrit 32.8 % (36.0-46.0); Lymphocytes # (auto) 1.4 10 ^3/uL (0.4-5.4); Lymphocytes % (auto) 16.2 % (10.0-50.0); Mean Corpuscular Hgb Conc. 32.5 g/dL (32.0-36.0); Mean Corpuscular Volume 70.7 fL (80.0-100.0); Neutrophils # (auto) 6.9 10 ^3/uL (1.6-8.6); Neutrophils % (auto) 77.5 % (37.0-80.0); Platelet Count (auto) 329 10^3/uL (140-450); Red Blood Cells 4.64 10^6/uL (4.0-5.20); Red Cell Distribution Width 14.9 % (11.8-14.3); White Blood Cell 8.9 10^3/uL (4.4-10.8)
[2024-12-16 07:06] LABS: Alanine Aminotransferase 98 U/L (7-40); Aspartate Aminotransferase 61 U/L (13-40); BUN/Creatinine Ratio 6.3 (10.0-20.0); Blood Urea Nitrogen < 5 mg/dL (9-23); Chloride 109 mmol/L (98-107); Glucose 121 mg/dL (74-106)
--- NOTE | 2024-12-16 10:06 | DVHPN2 ---
Progress Note Date Seen: Dec 16, 2024 Medical Necessity Reason Pt with a Central, PICC or Fol: No Subjective Patient reports: No new complaints Review of Systems: HEENT:Normal, CVS:Normal, RESPIRATORY:Normal, GI:Normal, :Normal, MSK:Normal, NEURO:Normal Objective vital signs Vital Sign Date Time Temp Pulse Resp B/P (MAP) Pulse Ox O2 Delivery O2 Flow Rate FiO2 12/16/24 09:00 98.3 92 16 107/68 (81) 99 98.3 12/16/24 07:48 Nasal Cannula* 2 28 Total Intake and Output 12/15/24 12/15/24 12/16/24 15:00 23:00 07:00 Intake Total 15 ml 390 ml 1550 ml Balance 15 ml 390 ml 1550 ml medications Current Medications Medications Dose Ordered Sig/Daniel Route Start Time Stop Time Status Last Admin Dose Admin Potassium Chloride/Dextrose/ Sod Cl 1,000 ml @ 100 mls/hr Q10H IV 12/15/24 08:45 12/16/24 05:08 100 MLS/HR Cefazolin Sodium/ Dextrose 50 ml @ 50 mls/hr Q8HR IV 12/15/24 14:00 12/16/24 05:24 50 MLS/HR Metronidazole 100 ml @ 100 mls/hr Q8HR IV 12/15/24 14:00 12/16/24 05:58 100 MLS/HR Hydromorphone HCl 1 mg Q3HPRN PRN IV 12/15/24 08:45 12/16/24 08:15 1 MG Sodium Chloride 10 ml Q8HR IV 12/15/24 14:00 12/16/24 05:59 10 ML Ondansetron HCl 4 mg Q4HP PRN IV 12/15/24 11:15 Celecoxib 100 mg BID PRN PO 12/15/24 22:00 Examination: GENERAL:Normal, HEENT:Normal, NECK:Normal, LUNGS:Normal, CVS:Normal, ABDOMEN:Normal, MSK:Normal, SKIN:Normal, NEURO:Normal, :Normal laboratory and microbiology Laboratory Tests 12/16/24 05:44 Test 12/16/24 05:44 Range/Units Serum Glucose 121 H 74-106 mg/dL Problem List/Assessment/Plan Problem List/Assessment/Plan #1 gallstones/chronic clarisse: s/p lap clarisse, ivf, iv antibiotics #2 morbid obesity #3 transaminitis: monitor Plan discussed with: Patient, Other (mother) Date of Service: Dec 16, 2024 Billing Provider: SYLVIE IBANEZ MD Common Visit Codes: [id number] INP/OBS CARE(HIGH) SYLVIE IBANEZ MD Dec 16, 2024 10:06
--- NOTE | 2024-12-16 10:15 | DVHPN2 ---
Progress Note Date Seen: Dec 16, 2024 Medical Necessity Reason Pt with a Central, PICC or Fol: No Objective vital signs Vital Sign Date Time Temp Pulse Resp B/P (MAP) Pulse Ox O2 Delivery O2 Flow Rate FiO2 12/16/24 09:00 98.3 92 16 107/68 (81) 99 98.3 12/16/24 07:48 Nasal Cannula* 2 28 Total Intake and Output 12/15/24 12/15/24 12/16/24 15:00 23:00 07:00 Intake Total 15 ml 390 ml 1550 ml Balance 15 ml 390 ml 1550 ml medications Current Medications Medications Dose Ordered Sig/Daniel Route Start Time Stop Time Status Last Admin Dose Admin Potassium Chloride/Dextrose/ Sod Cl 1,000 ml @ 100 mls/hr Q10H IV 12/15/24 08:45 12/16/24 05:08 100 MLS/HR Cefazolin Sodium/ Dextrose 50 ml @ 50 mls/hr Q8HR IV 12/15/24 14:00 12/16/24 05:24 50 MLS/HR Metronidazole 100 ml @ 100 mls/hr Q8HR IV 12/15/24 14:00 12/16/24 05:58 100 MLS/HR Hydromorphone HCl 1 mg Q3HPRN PRN IV 12/15/24 08:45 12/16/24 08:15 1 MG Sodium Chloride 10 ml Q8HR IV 12/15/24 14:00 12/16/24 05:59 10 ML Ondansetron HCl 4 mg Q4HP PRN IV 12/15/24 11:15 Celecoxib 100 mg BID PRN PO 12/15/24 22:00 laboratory and microbiology Laboratory Tests 12/16/24 05:44 Test 12/16/24 05:44 Range/Units Serum Glucose 121 H 74-106 mg/dL Problem List/Assessment/Plan Problem List/Assessment/Plan 12/16/24 has not ambulated, wounds clean and well approximated, abdomen appropriately tender, increase diet and ambulation Plan discussed with: Patient LUCAS ZACARIAS MD Dec 16, 2024 10:15
[2024-12-17 01:00] VITALS: BP 105/53; PULSE 84; RESP 18; O2SAT 95
[2024-12-17 05:00] VITALS: BP 124/74; PULSE 70; RESP 18; TEMP 98.2; O2SAT 97
[2024-12-17 06:08] LABS: Hemoglobin 9.8 g/dL (12.2-16.2); Lymphocytes # (auto) 2.4 10 ^3/uL (0.4-5.4); Neutrophils # (auto) 1.9 10 ^3/uL (1.6-8.6); White Blood Cell 4.7 10^3/uL (4.4-10.8)
[2024-12-17 06:11] LABS: Basophils # (auto) 0.1 10 ^3/uL (0-0.2); Basophils % (auto) 1.1 % (0.0-2.0); Eosinophils # (auto) 0 10 ^3/uL (0-0.8); Lymphocytes % (auto) 50.4 % (10.0-50.0); Mean Corpuscular Hemoglobin 23.1 pg (28.0-32.0); Mean Corpuscular Hgb Conc. 32.8 g/dL (32.0-36.0); Mean Corpuscular Volume 70.4 fL (80.0-100.0); Monocytes # (auto) 0.4 10 ^3/uL (0-1.3); Monocytes % (auto) 7.5 % (0.0-12.0); Platelet Count (auto) 290 10^3/uL (140-450); Red Blood Cells 4.26 10^6/uL (4.0-5.20); Red Cell Distribution Width 14.9 % (11.8-14.3)
[2024-12-17 06:14] LABS: Potassium 3.5 mmol/L (3.5-5.1)
[2024-12-17 06:17] LABS: Carbon Dioxide 23 mmol/L (20-31)
[2024-12-17 06:18] LABS: Calcium 8.8 mg/dL (8.7-10.4)
[2024-12-17 06:22] LABS: Glucose 98 mg/dL (74-106)
[2024-12-17 06:23] LABS: Alkaline Phosphatase 65 U/L (46-116); BUN/Creatinine Ratio 6.3 (10.0-20.0); Total Protein 6.4 g/dL (5.7-8.2)
[2024-12-17 06:24] LABS: Albumin 3.9 g/dL (3.2-4.8)
[2024-12-17 06:25] LABS: Bilirubin, Total 0.3 mg/dL (0.2-1.0)
[2024-12-17 06:31] LABS: Alanine Aminotransferase 198 U/L (7-40); Aspartate Aminotransferase 192 U/L (13-40); Blood Urea Nitrogen 5 mg/dL (9-23); Chloride 111 mmol/L (98-107)
[2024-12-17 06:37] LABS: Anion Gap 6 (5-15); Sodium 140 mmol/L (136-145)
[2024-12-17 09:00] VITALS: BP 124/68; PULSE 59; RESP 18; TEMP 98.3; O2SAT 98
--- NOTE | 2024-12-17 10:12 | DVHDS2 ---
Discharge Summary Date of Admission Dec 15, 2024 at 11:08 Date of Discharge: Dec 17, 2024 Labs/Diagnostic Data: Laboratory Results Test 12/17/24 05:28 12/15/24 12:40 12/12/24 12:36 White Blood Count 4.7 10^3/uL (4.4-10.8) Red Blood Count 4.26 10^6/uL (4.0-5.20) Hemoglobin 9.8 g/dL (12.2-16.2) Hematocrit 30.0 % (36.0-46.0) Mean Corpuscular Volume 70.4 fL (80.0-100.0) Mean Corpuscular Hemoglobin 23.1 pg (28.0-32.0) Mean Corpuscular Hemoglobin Concent 32.8 g/dL (32.0-36.0) Red Cell Distribution Width 14.9 % (11.8-14.3) Platelet Count 290 10^3/uL (140-450) Mean Platelet Volume 8.4 fL (6.9-10.8) Neutrophils (%) (Auto) 40.0 % (37.0-80.0) Lymphocytes (%) (Auto) 50.4 % (10.0-50.0) Monocytes (%) (Auto) 7.5 % (0.0-12.0) Eosinophils (%) (Auto) 1.0 % (0.0-7.0) Basophils (%) (Auto) 1.1 % (0.0-2.0) Neutrophils # (Auto) 1.9 10 ^3/uL (1.6-8.6) Lymphocytes # (Auto) 2.4 10 ^3/uL (0.4-5.4) Monocytes # (Auto) 0.4 10 ^3/uL (0-1.3) Eosinophils # (Auto) 0 10 ^3/uL (0-0.8) Basophils # (Auto) 0.1 10 ^3/uL (0-0.2) Nucleated Red Blood Cells 0.0 % Sodium Level 140 mmol/L (136-145) Potassium Level 3.5 mmol/L (3.5-5.1) Chloride Level 111 mmol/L (98-107) Carbon Dioxide Level 23 mmol/L (20-31) Anion Gap 6 (5-15) Blood Urea Nitrogen 5 mg/dL (9-23) Creatinine 0.80 mg/dL (0.550-1.02) Glomerular Filtration Rate Calc 107 mL/min (>90) BUN/Creatinine Ratio 6.3 (10.0-20.0) Serum Glucose 98 mg/dL (74-106) Calcium Level 8.8 mg/dL (8.7-10.4) Total Bilirubin 0.3 mg/dL (0.2-1.0) Aspartate Amino Transferase (AST) 192 U/L (13-40) Alanine Aminotransferase (ALT) 198 U/L (7-40) Alkaline Phosphatase 65 U/L (46-116) Total Protein 6.4 g/dL (5.7-8.2) Albumin 3.9 g/dL (3.2-4.8) Blood Gas Specimen Type Arterial Blood Gas Sample Site Left brachial Blood Gas Patient Temperature 37.0 Arterial Blood Date Drawn [id number] Arterial Blood pH 7.369 (7.350-7.450) Arterial Blood Partial Pressure CO2 35.5 mmHg (32.0-45.0) Arterial Blood Partial Pressure O2 60.0 mmHg (83.0-108.0) Arterial Blood HCO3 20.0 mmol/L (21.0-28.0) Arterial Blood Oxygen Saturation 90.7 % (94.0-98.0) Arterial Blood Base Excess -4.7 mmol/L (-2.0-3.0) Arterial Blood Oxyhemoglobin 90.2 % (94.0-98.0) Arterial Blood Carboxyhemoglobin 0.1 % (0.5-1.5) Arterial Blood Methemoglobin 0.4 % (0.0-1.5) Gabe Test N/a Blood Gas Total Hemoglobin 11.10 g/dL (12.0-16.0) Blood Gas Modality Nasal cannula FiO2 % 28.0 Blood Gas Comments Drawn by lab Prothrombin Time 11.2 sec (9.3-11.8) Prothrombin Time INR 1.06 (0.9-1.15) Activated Partial Thromboplast Time 31.9 SEC (24.5-34.5) Urine Color Light-yellow (Yellow) Urine Clarity Clear (Clear) Urine pH 5.5 (5.0-9.0) Urine Specific Johnson 1.013 (1.001-1.035) Urine Protein Negative (Negative) Urine Ketones Negative (Negative) Urine Blood 2+ /uL (Negative) Urine Nitrite Negative (Negative) Urine Bilirubin Negative (Negative) Urine Urobilinogen Normal mg/dL (Negative) Urine Leukocyte Esterase 2+ /uL (Negative) Urine RBC 4 /hpf (0 - 4) Urine Microscopic WBC 15 /HPF (0-5) Urine Squamous Epithelial Cells Few /hpf (<5) Urine Bacteria Few /hpf (None Seen) Urine Mucus Few (None Seen) Urine Glucose Normal mg/dL (Normal) Beta HCG, Quantitative 0.5 mIU/mL (1.5-4.2) Other Laboratory Tests 12/17/24 05:28 Brief Hx & Hospital Course: see dictated note Condition at Discharge: Good Final Diagnosis/Problems List gallstones Discharge Disposition: Home Discharge Instruct/Medications Diet: Cardiac 2g Na,low cholest Activity: No Restrictions, As Tolerated Follow Up/Referral: schedule appt with dr Bowman in 1 wk Medications: dc home if ok with dr Bowman script to pharmacy Discharge Statement: "Patient was advised to return to the ER or call 911 if any headaches, dizziness, shortness of breath, chest pain, abdominal pain, bleeding, fevers, or worsening of medical condition. Patient was counseled about treatment plan, medications, possible side effects, patientverbalized understanding. All questions were answered to the best of my ability. This discharge took greater then 30 minutes in planning, reviewing documentation, counseling the patient, and discussing with other team members." ASSESSMENT ASSESSMENT Assessment gallstones Date of Service: Dec 17, 2024 Billing Provider: SYLVIE IBANEZ MD Common Visit Codes: [id number] DISCH DAY >30min SYLVIE IBANEZ MD Dec 17, 2024 10:12
[2024-12-17] MEDS ORDERED: MORPHINE SULFATE INJ 2 MG/ml SYRG IV PRN (10:15)
[2024-12-17] MEDS ORDERED: TRAM-626 PO (10:16)
[2024-12-17] MEDS ORDERED: CEPH500C PO (10:16)
[2024-12-17] MEDS ORDERED: DOCU-94 PO (10:16)
--- NOTE | 2024-12-17 10:30 | DVHDS ---
DATE OF DISCHARGE: 12/17/2024 DATE OF DISCHARGE: 12/17/2024 HISTORY OF PRESENT ILLNESS: The patient is a 23-year-old lady who was admitted for cholelithiasis and chronic cholecystitis. HOSPITAL COURSE: The patient underwent laparoscopic cholecystectomy by Dr. Grant. The patient has done well postoperatively and is currently tolerating an oral diet. She will be discharged if cleared by Dr. Grant to be on tramadol p.r.n. for pain, Colace p.r.n. for constipation and Keflex 500 mg t.i.d. for 7 days. She will follow up with Dr. Grant in 1 week. FINAL DIAGNOSES: * Anemia. * Morbid obesity. * Sleep apnea. * Cholelithiasis with chronic cholecystitis status post laparoscopic cholecystectomy. * Transaminitis. Time spent in discharge plan and review of plan with the patient and nursing was 37 minutes. MD SHIRA Barron/BRONSON TID: [id number] RECEIPT: [id number]
[2024-12-17 14:14] VITALS: BP 122/68; PULSE 64; RESP 18; TEMP 98.8; O2SAT 98
== END 2024-12-17 14:14 | disposition home or self-care (01) | DRG 418 ==
LOC: SUR 06:14 → OVERFLOW 11:08 → TELE-CENTR 16:34 → CENTRAL 12-17 02:41
PROVIDERS: ADMIT Internal Medicine; ATTEND Internal Medicine
PROC: 5A09357 Assistance with Respiratory Ventilation, Less than 24 Consecutive Hours, Continuous Positive Airway Pressure (ICD-10-PCS; 2024-12-15)
PROC: 0FT44ZZ Resection of Gallbladder, Percutaneous Endoscopic Approach (ICD-10-PCS; principal; 2024-12-15 07:21)
DX: K80.12 Calculus of gallbladder with acute and chronic cholecystitis without obstruction (principal); Z68.41 Body mass index [BMI] 40.0-44.9, adult; R16.0 Hepatomegaly, not elsewhere classified; E66.01 Morbid (severe) obesity due to excess calories; E11.9 Type 2 diabetes mellitus without complications; D64.9 Anemia, unspecified; G47.30 Sleep apnea, unspecified; R74.01 Elevation of levels of liver transaminase levels; R06.03 Acute respiratory distress
CPT/HCPCS: 36415; 36600; 71045; 80048; 80053; 81001; 82805; 84702; 85025; 85610; 85730; 86850; 86900; 86901; G0378; J0131; J0330; J1100; J2405; J2704; J3490

== ENCOUNTER 2024-12-21 15:06 | Emergency (ER) | payer BC ==
[~2024-12-21] VITALS: Ht 157.5 cm; Wt 105.4 kg
[~2024-12-21 15:06] MED LIST changes: +CEPH500C PO; +DOCU-94 PO; +TRAM-626 PO
[2024-12-21 15:49] LABS: Basophils # (auto) 0 10 ^3/uL (0-0.2); Basophils % (auto) 0.2 % (0.0-2.0); Eosinophils # (auto) 0.2 10 ^3/uL (0-0.8); Eosinophils % (auto) 3.3 % (0.0-7.0); Hematocrit 36.7 % (36.0-46.0); Hemoglobin 11.8 g/dL (12.2-16.2); Mean Corpuscular Hemoglobin 22.8 pg (28.0-32.0); Mean Corpuscular Hgb Conc. 32.2 g/dL (32.0-36.0); Mean Corpuscular Volume 70.7 fL (80.0-100.0); Monocytes # (auto) 0.5 10 ^3/uL (0-1.3); Monocytes % (auto) 9.8 % (0.0-12.0); Neutrophils # (auto) 2.1 10 ^3/uL (1.6-8.6); Neutrophils % (auto) 44.7 % (37.0-80.0); Nucleated Red Blood Cells % 0.1 %; Platelet Count (auto) 404 10^3/uL (140-450); Red Blood Cells 5.18 10^6/uL (4.0-5.20); Red Cell Distribution Width 15.4 % (11.8-14.3); White Blood Cell 4.7 10^3/uL (4.4-10.8)
[2024-12-21 16:53] VITALS: BP 122/95; PULSE 92; RESP 18; TEMP 97; O2SAT 95
--- NOTE | 2024-12-21 17:30 | ED.PDOC ---
Musculoskeletal HPI Comments 24-year-old presents for a nail avulsion to the left 2nd great toe. Occurred yesterday. Requesting it to be removed. No other complaint or concern. Able to ambulate without assistive devices. Has full ROM. Chief Complaint: Lower Extremity Time Seen by MD: 16:42 Primary Care Provider: AMRIT GRACIA Reviewed Notes: Nurses Notes, Medications, Allergies Allergies: Coded Allergies: NO KNOWN ALLERGIES (Unverified , 11/30/24) Home Meds Active Scripts Docusate Sodium (Colace) 100 Mg Cap, 100 MG PO BIDP PRN for 15 Days, #30 CAP Prov:SYLVIE IBANEZ MD 12/17/24 Tramadol HCl (Tramadol HCl) 50 Mg Tab, 50 MG PO TIDPRN PRN for 7 Days, #21 TAB Prov:SYLVIE IBANEZ MD 12/17/24 Cephalexin Monohydrate (Cephalexin) 500 Mg Cap, 1 CAP PO TID for 7 Days, #21 CAP Prov:SYLVIE IBANEZ MD 12/17/24 Reported Medications Clobetasol Propionate (Clobetasol Propionate) 0.05 % Cre, 0.05 % EX DAILY, CRE 12/12/24 Ferrous Sulfate (FERROUS SULFATE) 325 Mg Tb, 325 MG PO DAILY, TAB 12/12/24 Ibuprofen (Motrin) 100 Mg/5 Ml Ud, 300 MG GT PRN, UNIT 12/12/24 Mode of Arrival: Ambulatory Past Medical History PAST MEDICAL HISTORY: Asthma Surgical History: Tonsillectomy [employer] History: Denies all [employer] Hx Family History Family History: Reviewed,noncontributory to illness Social History Smoker: Non-Smoker Alcohol: Denies ETOH Use Drugs: Denies Drug Use Lives In: Home All Other Systems: Reviewed and Negative (per hpi) Physical Exam General Appearance: No Apparent Distress, Normal HEENT: Normal ENT Inspection, Pharynx Normal, TMs Normal Neck: Full Range of Motion, Non-Tender, Normal, Normal Inspection Respiratory: Chest Non-Tender, Lungs Clear, No Accessory Muscle Use, No Respiratory Distress, Normal Breath Sounds Cardiovascular: No Edema, No JVD, No Murmur, No Gallop, Normal Peripheral Pulses, Regular Rate/Rhythm Breast Exam: Deferred Gastrointestinal: No Organomegaly, Non Tender, No Pulsatile Mass, Normal Bowel Sounds, Soft Genitalia: Deferred Pelvic: Deferred Rectal: Deferred Extremities: No calf tenderness, Normal capillary refill, Normal inspection, Normal range of motion, Non-tender, No pedal edema Musculoskeletal : Apperance: Normal Neurologic: Alert, balance assembler II-XII nml as Tested, No Motor Deficits, Normal Affect, Normal Mood, No Sensory Deficits Cerebellar Function: Normal Reflexes: Normal Skin: Dry, Normal Color, Warm Lymphatic: No Adenopathy Was a procedure done? Was a procedure done?: Yes Sedation Sedation?: No Other Procedure Procedure Nail removal Indication Partial nail avulsion Anesthetic No Prep Yes Success Yes Informed consent obtained: Yes Risks, benefits, and alternati: Yes Differential Diagnosis EXT Differential Diagnosis: Other X-Ray, Labs, Meds, VS Vital Signs Date Time Temp Pulse Resp B/P (MAP) Pulse Ox O2 Delivery O2 Flow Rate FiO2 12/21/24 16:53 92 18 95 Room Air 12/21/24 16:53 97.0 92 18 122/95 (104) 95 97.0 12/21/24 15:30 97.0 92 18 122/95 (104) 95 97.0 Lab Test 12/21/24 15:39 Range/Units White Blood Count 4.7 4.4-10.8 10^3/uL Red Blood Count 5.18 4.0-5.20 10^6/uL Hemoglobin 11.8 #L 12.2-16.2 g/dL Hematocrit 36.7 # 36.0-46.0 % Mean Corpuscular Volume 70.7 L 80.0-100.0 fL Mean Corpuscular Hemoglobin 22.8 L 28.0-32.0 pg Mean Corpuscular Hemoglobin Concent 32.2 32.0-36.0 g/dL Red Cell Distribution Width 15.4 H 11.8-14.3 % Platelet Count 404 140-450 10^3/uL Mean Platelet Volume 8.3 6.9-10.8 fL Neutrophils (%) (Auto) 44.7 37.0-80.0 % Lymphocytes (%) (Auto) 42.0 10.0-50.0 % Monocytes (%) (Auto) 9.8 0.0-12.0 % Eosinophils (%) (Auto) 3.3 0.0-7.0 % Basophils (%) (Auto) 0.2 0.0-2.0 % Neutrophils # (Auto) 2.1 1.6-8.6 10 ^3/uL Lymphocytes # (Auto) 2.0 0.4-5.4 10 ^3/uL Monocytes # (Auto) 0.5 0-1.3 10 ^3/uL Eosinophils # (Auto) 0.2 0-0.8 10 ^3/uL Basophils # (Auto) 0 0-0.2 10 ^3/uL Nucleated Red Blood Cells 0.1 % X-Ray, Labs, Meds, VS Comment Patient presents for nail avulsion 75% removed after patient's strike the foot. Nail was removed. Patient tolerated procedure well. Xeroform gauze was applied to the toe and was wrapped with nonadherent dressing and Kerlix Ambulated with no assistive devices. Return precautions discussed Keep splint clean dry intact. Me soak the foot in warm water with Epsom salt tomorrow and take [id number] Tylenol as needed Strict return precautions discussed Time of 1ST Reevaluation: 17:15 Reevaluation 1ST: Improved Patient Education/Counseling: Diagnosis, Treatment Family Education/Counseling: Diagnosis, Treatment Departure 1 Departure Time of Disposition: 17:30 Impression: Primary Impression: Nail avulsion, toe Qualified Codes: S91.209A - Unspecified open wound of unspecified toe(s) with damage to nail, initial encounter Disposition: 01 HOME / SELF CARE / HOMELESS Condition: Stable (s) Discharged With: Relative (Mother) Critical Care Note Critical Care Time?: No Stability Stability form required: No Heart Score Heart Score: Heart Score Response (Comments) Value History N/A 0 EKG N/A 0 Age N/A 0 Risk Factors N/A 0 Troponin N/A 0 Total 0 ANANT MCCRARY NP December 21, 2024 17:30
== END 2024-12-21 17:50 | disposition home or self-care (01) ==
LOC: EEVIPCON 15:06 → ER 15:06
DX: S91.202A Unspecified open wound of left great toe with damage to nail, initial encounter (principal); J45.909 Unspecified asthma, uncomplicated; Z90.89 Acquired absence of other organs; X58.XXXA Exposure to other specified factors, initial encounter; Y93.89 Activity, other specified; Y92.89 Other specified places as the place of occurrence of the external cause; Y99.8 Other external cause status
CPT/HCPCS: 11730; 36415; 85025

== ENCOUNTER 2025-01-22 15:30 | Outpatient (CLI) | payer BC ==
[2025-01-22 15:59] LABS: Potassium 3.8 mmol/L (3.5-5.1)
[2025-01-22 16:00] LABS: Calcium 10.2 mg/dL (8.7-10.4)
[2025-01-22 16:05] LABS: BUN/Creatinine Ratio 12.4 (10.0-20.0)
[2025-01-22 16:07] LABS: Phosphorus 3.8 mg/dL (2.4-5.1)
[2025-01-22 16:18] LABS: Albumin 5.1 g/dL (3.2-4.8); CRP High Sensitivity 1.02 mg/dL (<1.0)
[2025-01-22 16:37] LABS: Erythrocyte Sedimentation Rate 21 mm/hr (0-20)
== END 2025-01-22 17:00 | disposition home or self-care (01) ==
LOC: LAB 15:30
PROVIDERS: ATTEND Internal Medicine
DX: E66.01 Morbid (severe) obesity due to excess calories (principal)
CPT/HCPCS: 36415; 80069; 85652; 86038; 86141

== ENCOUNTER 2025-04-08 09:06 | Outpatient (CLI) | payer BC ==
[2025-04-08 10:20] LABS: Hemoglobin 12.1 g/dL (12.2-16.2); Nucleated Red Blood Cells % 0.0 %
[2025-04-08 10:23] LABS: Hematocrit 37.7 % (36.0-46.0); Mean Corpuscular Hemoglobin 21.2 pg (28.0-32.0); Mean Corpuscular Volume 66.1 fL (80.0-100.0)
[2025-04-08 10:53] LABS: Alanine Aminotransferase 21 U/L (7-40); Alkaline Phosphatase 61 U/L (46-116); Anion Gap 9 (5-15); BUN/Creatinine Ratio 14.5 (10.0-20.0); Bilirubin, Total 0.5 mg/dL (0.2-1.0); Blood Urea Nitrogen 12 mg/dL (9-23); Calcium 9.5 mg/dL (8.7-10.4); Carbon Dioxide 24 mmol/L (20-31); Chloride 107 mmol/L (98-107); Glucose 80 mg/dL (74-106); Potassium 3.5 mmol/L (3.5-5.1); Sodium 140 mmol/L (136-145)
[2025-04-08 11:09] LABS: Albumin 5.1 g/dL (3.2-4.8); Total Protein 8.2 g/dL (5.7-8.2)
[2025-04-09 20:07] LABS: Chlamydia Trachomatis, NAA Negative (Negative); Neisseria gonorrhoeae, NAA Negative (Negative)
== END 2025-04-08 17:00 | disposition home or self-care (01) ==
LOC: LAB 09:06
DX: Z11.3 Encounter for screening for infections with a predominantly sexual mode of transmission (principal)
CPT/HCPCS: 36415; 80053; 85025; 86703; 86780; 87902

== ENCOUNTER 2025-06-23 12:25 | Outpatient (CLI) | payer BC ==
[2025-06-24 11:35] LABS: Hepatitis B Surface Antigen Negative (Negative)
[2025-06-24 11:52] LABS: Hepatitis C Antibody Negative (Negative)
== END 2025-06-23 17:00 | disposition home or self-care (01) ==
LOC: LAB 12:25
PROVIDERS: ATTEND Internal Medicine
DX: R79.89 Other specified abnormal findings of blood chemistry (principal); R63.5 Abnormal weight gain; Z11.59 Encounter for screening for other viral diseases
CPT/HCPCS: 36415; 80074; 84439; 84443; 86706